=== PATIENT | male | born 1970 | race Caucasian/White ===

== ENCOUNTER → 2020-04-22 | Outpatient (CLI) | payer OTHER ==
[~2020-04-22] MED LIST: CATHETER FLUSH 10 ML SYR IV PRN; HOLD METFORMIN - RECEIVED CONTRAST 20 ML VIAL IV SCH; IOHEXOL 350 MG/ML 100 ML (OMNIPAQUE 350) VIAL IV ONE; NS 100 ML (IVPB) BAG IV ONE
--- NOTE | 2020-04-22 09:29 | Diagnostic Imaging Report ---
PROCEDURE: CT abdomen and pelvis with contrast. TECHNIQUE: Multiple contiguous axial images were obtained through the abdomen and pelvis after administration of intravenous contrast. Auto Exposure Controls were utilized during the CT exam to meet ALARA standards for radiation dose reduction. All CT scans use one or more of the following dose optimizing techniques: automated exposure control, MA and/or KvP adjustment based on patient size and exam type or iterative reconstruction. INDICATION: Abdominal pain of 2 months' duration. FINDINGS: The appendix arises off the anteromedial aspect of the lower cecum and is directed inferiorly. No dilatation and no periappendiceal edema. No pericecal inflammatory changes. The urinary tracts unobstructed, nonfocal and nonacute. The liver is fatty but otherwise negative. The gallbladder and bile ducts normal. The adrenals, spleen and pancreas unremarkable. The aorta is nonaneurysmal. There is no ileus or bowel obstruction. There is no diverticulitis. Prostate, seminal vesicles and urinary bladder normal. No mesenteric or retroperitoneal adenopathy. The bony structures and the lung bases were nonacute. IMPRESSION: Normal appendix, unobstructed urinary tracts. No acute appearing abnormality. No findings of recurrent hernia. Dictated by: Dictated on workstation # [id number]
== END ==
LOC: RAD FS 08:10
PROVIDERS: ATTEND Family Medicine
DX: R10.84 Generalized abdominal pain (principal)
CPT/HCPCS: 74177

== ENCOUNTER → 2022-01-05 | Outpatient (CLI) | payer OTHER ==
--- NOTE | 2022-01-05 16:58 | Diagnostic Imaging Report ---
EXAMINATION: Left foot radiographs, 3 views. COMPARISON: None. HISTORY: 51-year-old male, left foot pain. History of metatarsophalangeal joint dislocation. FINDINGS: There is moderate joint space loss of the first metatarsophalangeal joint with small osteophytes. There is no identified bone erosion. The second proximal phalanx is slightly medially subluxed relative to the second metacarpal. There is no brittney dislocation currently. There is normal variant congenital fusion of the fifth digit middle and distal phalanges. There is no identified acute fracture. IMPRESSION: 1. The second proximal phalanx is slightly medially subluxed at the second metatarsophalangeal joint without brittney dislocation. 2. No identified acute fracture. 3. Moderate osteoarthritis of the first metatarsophalangeal joint. Dictated by: Dictated on workstation # [id number]
== END ==
LOC: RAD FS 16:28
PROVIDERS: ATTEND Nurse Practitioner
DX: S93.125D Dislocation of metatarsophalangeal joint of left lesser toe(s), subsequent encounter (principal); X58.XXXD Exposure to other specified factors, subsequent encounter
CPT/HCPCS: 73630

== ENCOUNTER → 2022-01-21 | Outpatient (CLI) | payer OTHER ==
--- NOTE | 2022-01-21 12:33 | Diagnostic Imaging Report ---
INDICATION: Left toe dislocation follow-up COMPARISON made to a study from 01/05/2022. FINDINGS: Four views of the left foot show no fracture, dislocation or other acute abnormalities. IMPRESSION: Unremarkable left foot. Dictated by: Dictated on workstation # [id number]
== END ==
LOC: RAD FS 08:36
PROVIDERS: ATTEND Nurse Practitioner
DX: S93.125D Dislocation of metatarsophalangeal joint of left lesser toe(s), subsequent encounter (principal); X58.XXXD Exposure to other specified factors, subsequent encounter
CPT/HCPCS: 73660